=== PATIENT | female | born 1995 | race African-American/Black ===

== ENCOUNTER 2024-07-11 08:10 | Emergency (ER) | payer OTHER ==
[2024-07-11 08:25] VITALS: PULSE 106; O2SAT 100
== END 2024-07-11 08:40 | disposition left against medical advice (07) ==
LOC: ER 08:10
DX: S01.511A Laceration without foreign body of lip, initial encounter (principal); Z53.21 Procedure and treatment not carried out due to patient leaving prior to being seen by health care provider; X58.XXXA Exposure to other specified factors, initial encounter; Y93.89 Activity, other specified; Y92.89 Other specified places as the place of occurrence of the external cause; Y99.8 Other external cause status